=== PATIENT | male | born 1960 | race Hispanic/Latino ===

== ENCOUNTER 2020-08-06 13:12 | Emergency (ER) | payer MEDICAID ==
--- NOTE | 2020-08-06 16:46 | Event Note ---
ED Screening Note Date of service: 08/06/20 Time: 16:37 ED Screening Note: 59-year-old male patient presents emergency department with complaints of an acute exacerbation of chronic neck pain. States he has been suffering from back problems for over 20 years. 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 He has been taking multiple pain medications for an extended period of time, including opiates and muscle relaxers. States his primary care provider sent him to the ER to have his acute back pain exacerbation treated because it was causing his blood pressure to be elevated. The patients back pain is not associated with numbness, tingling, or loss of strength. There is no acute urinary incontinence or retention and no bowel incontinence or retention. There is no saddle anesthesia. The patient is afebrile and neurovascularly intact. No clinical evidence for acute nerve compression (such as cauda equine syndrome) or infection (such as epidural ab scess). General: Awake, appropriately interactive, no acute distress. Neck: Supple. Full range of motion intact. Cardiovascular: Normal peripheral perfusion. Pulmonary: No respiratory distress. Patient is speaking normally without use of accessory muscles. Skin: No apparent rashes or lesions. Back: Diffuse cervical spine tenderness without step-offs. Neurological: No facial asymmetry. Speech is clear. Follows commands. Patient is alert and oriented. Strength and sensation intact throughout. Ambulatory without assistance. No saddle anesthesia. Upper and lower extremity deep tendon reflexes symmetric. Musculoskeletal: Moves all four extremities spontaneously with normal range of motion. Psych: Cooperative. Appropriate mood and affect. The patients presentation is consistent with an acute exacerbation of chronic back pain. He is afebrile, vital signs are stable. Neurological exam is nonfocal. There is no clinical evidence of emergent pathology to warrant further testing, continued ED treatment, admission, or surgical evaluation at this point. It has been explained to the patient that further diagnostic testing on an emergent basis is not indicated and the most appropriate course of action is outpatient follow-up. Medical screening exam performed; this is patient encounter does not represent a certified medical emergency. Patient was advised that his medical screening exam findings do not justify dispensing controlled substances in the emergency department for management of chronic pain. He was offered Toradol and muscle relaxers, as well as referral to pain management clinic and prescription for nonopioid medications. Patient refused these medications and requested a second opinion from an attending physician. Case discussed with Dr. Schumacher, who will assume care of patient at this time. Of note, patient states he is a resident of [place] and his chronic pain medications have been filled at local pharmacy. [place] controlled substance database reviewed; there is no evidence of any controlled substances being dispensed under this patient's name and date of in this state in the last 4 years.
--- NOTE | 2020-08-06 18:17 | Emergency Department Report ---
HPI - General Chief Complaint: Back Pain/Injury Time Seen by Provider: 08/06/20 15:09 - HPI HPI: This is a 59-year-old male presents to the emergency department, allegedly sent in by his PCP Dr. Robbie Monroe, for evaluation and treatment of neck pain. Patient says he has been dealing with this neck pain for almost 20 years and has a history of spinal fusion and he says spinal stenosis. He denies any recent fall, trauma, injury. Patient says that he is trying to get into a pain clinic but has been unsuccessful and more recently his pain meds have been prescribed and managed by his PCP. He says that it feels like there is a "hot investigator vice my neck." He denies any headache, vision change, slurred speech, numbness or paresthesias. He denies any problems with bowel or bladder, any change in his gait or ability to ambulate. Patient says that has been more than 2 years since he saw either a neurosurgeon or orthopedic spine physician. The [place] prescription monitoring shows that the patient filled a 1 month supply of clonazepam and oxycodone in June. ED Past Medical Hx - Past Medical History Previous Medical History?: No - Surgical History Past Surgical History?: Yes Additional Surgical History: spinal fusion - Medications Home Medications: Home Medications Medication Instructions Recorded Confirmed Last Taken Type Cyclobenzaprine [Flexeril] 10 mg PO TID PRN #12 tablet 08/06/20 Unknown Rx Ibuprofen [Motrin 800 MG tab] 800 mg PO Q8HR PRN #20 tablet 08/06/20 Unknown Rx ED Review of Systems ROS: Stated complaint: BACK PAIN Other details as noted in HPI Comment: All other systems reviewed and negative Constitutional: denies: chills, fever Eyes: denies: eye pain, vision change ENT: denies: ear pain, throat pain Respiratory: denies: cough, shortness of breath Cardiovascular: denies: chest pain, palpitations Gastrointestinal: denies: abdominal pain, vomiting Genitourinary: denies: dysuria, discharge Musculoskeletal: other (neck pain). denies: back pain Skin: denies: rash, lesions Neurological: denies: headache, weakness, numbness, paresthesias Physical Exam - Physical Exam Physical Exam: GENERAL: The patient is well-developed well-nourished. HENT: Normocephalic. Atraumatic. Patient has moist mucous membranes. EYES: Extraocular motions are intact. NECK: Supple. Trachea is midline. There is both midline and bilateral paraspinal tenderness to palpation. There is taut musculature along the paraspinal muscles and down to the trapezius. Full range of motion of the head and neck. No meningismus signs. CHEST/LUNGS: Clear to auscultation. There is no respiratory distress noted. HEART/CARDIOVASCULAR: Regular. There is no tachycardia. There is no murmur. ABDOMEN: Abdomen is soft, nontender. Patient has normal bowel sounds. SKIN: Skin is warm and dry. NEURO: The patient is awake, alert, and oriented. The patient is cooperative. The patient has no focal neurologic deficits. Normal speech. Cranial nerves II through XII grossly intact. MUSCULOSKELETAL: There is no tenderness or deformity. There is no limitation ra nge of motion. ED Medical Decision Making - Medical Decision Making This patient presents to the emergency department seeking pain medication for chronic neck pain. The patient denies any recent fall, injury or trauma. On examination he has reproducible tenderness to palpation both midline and bilateral paraspinal neck along with taut musculature down through the trapezius muscles. He has full range of motion of his head and neck. No meningismus signs. No focal, motor or sensory deficits and his cranial nerves are intact. The patient is seen standing, and ambulatory in the emergency department, and appears very stable. He has no complaints of any numbness or paresthesias, weakness, extremity pain. Since the patient did not have any new fall, injury or trauma, I did not feel that any x-ray or CT imaging of the cervical spine/neck were necessary at this time. I explained to the patient that we are not a pain clinic and we do not refill chronic pain medications, especially scheduled or narcotic medications. I also explained that, given his history of a spinal fusion and spinal stenosis, that it is imperative that the patient follows up with either a neurosurgeon or orthopedic spine physician. The patient was given a single IM injection of morphine to try and treat his pain. The patient will be discharged home with a prescription for NSAIDs and a muscle relaxer. The patient will be given an outpatient referral for Dr. Eason, a local neurosurgeon. He was also instructed to follow-up with his primary care physician. He will return to the emergency department with any worsening of his symptoms or with any acute distress. Critical Care Time: No Critical care attestation.: If time is entered above; I have spent that time in minutes in the direct care of this critically ill patient, excluding procedure time. ED Disposition Clinical Impression: Neck pain, History of spinal fusion, Encounter for pain management Disposition: DC TO HOME OR SELFCARE Is pt being admited?: No Condition: Stable Instructions: Neck Exercises, Musculoskeletal Pain Additional Instructions: Please follow-up with your primary care physician in the next few days. I am giving you a referral for a local neurosurgeon, Dr. Eason, to follow-up regarding your neck pain and history of spinal fusion and spinal stenosis. You have been prescribed a medication that is sedating and therefore should not be taken prior to driving, working, and responsible for children and in no way should be mixed with alcohol of any quantity. Return to the emergency department with any worsening of your symptoms, new or concerning symptoms not addressed during this current emergency department visit, or with any acute distress. Prescriptions: Cyclobenzaprine [Flexeril] 10 mg PO TID PRN #12 tablet PRN Reason: Muscle Spasm Ibuprofen [Motrin 800 MG tab] 800 mg PO Q8HR PRN #20 tablet PRN Reason: Pain , Severe (7-10) Referrals: ROBBIE MONROE JR, MD [Staff Physician] - 2-3 Days RYANNE EASON II, MD [Staff Physician] - 2-3 Days Time of Disposition: 18:44
[2020-08-06 18:23] VITALS: BP 146/92
[2020-08-06] MEDS ORDERED: MORPHINE 4 MG/1 ML INJ IV ONE (18:26)
[2020-08-06] MEDS ORDERED: MORPHINE 4 MG/1 ML INJ IM ONE (18:27)
== END 2020-08-06 19:09 | disposition home or self-care (01) ==
LOC: ED 13:12 → EDBD 13:12 → ED 19:09
DX: M54.2 Cervicalgia (principal); Z79.899 Other long term (current) drug therapy; Z98.890 Other specified postprocedural states; Z98.1 Arthrodesis status
CPT/HCPCS: 36415; 80048; 80307; 81001; 85025; 96372; 99282; 99284; J2270; 80320; G0480; J1885

== ENCOUNTER 2020-08-06 19:58 | Emergency (ER) | payer MEDICAID ==
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
[2020-08-06 23:06] LABS: Bilirubin,Urine NEG (Negative); Blood,Urine NEG (Negative); Color,Urine Yellow (Yellow); Hyaline Casts,Urine 1 /LPF; Mucus,Urine 3+ /HPF; Protein,Urine <15 mg/dL mg/dL (Negative)
[2020-08-06 23:07] LABS: Amphetamine Screen,Urine PRESUMPTIVE NEGATIVE; Benzodiazepines Screen,Urine PRESUMPTIVE NEGATIVE; Cannabinoid Screen,Urine PRESUMPTIVE POSITIVE; Cocaine Screen,Urine PRESUMPTIVE NEGATIVE; Methadone Screen,Urine PRESUMPTIVE NEGATIVE; Opiate Screen,Urine PRESUMPTIVE POSITIVE
[2020-08-07] MEDS ORDERED: KETOROLAC 60 MG/2 ML INJ IM ONE (00:06)
[2020-08-07 00:08] LABS: Basophils # (Auto) 0.1 K/mm3 (0.0-0.1); Basophils % (Auto) 0.8 % (0.0-1.8); Eosinophils # (Auto) 0.1 K/mm3 (0.0-0.4); Eosinophils % (Auto) 1.4 % (0.0-4.3); Hematocrit 46.2 % (35.5-45.6); Hemoglobin 15.9 gm/dl (11.8-15.2); Lymphocytes # (Auto) 3.1 K/mm3 (1.2-5.4); Lymphocytes % (Auto) 38.8 % (13.4-35.0); Mean Corpuscular HGB Conc 34 % (32-34); Mean Corpuscular Volume 96 fl (84-94); Monocytes # (Auto) 0.8 K/mm3 (0.0-0.8); Monocytes % (Auto) 10.3 % (0.0-7.3); Platelet Count 230 K/mm3 (140-440); Red Cell Distribution Width 14.3 % (13.2-15.2)
[2020-08-07 00:25] LABS: BUN/Creatinine Ratio 14; Blood Urea Nitrogen 11 mg/dL (9-20); Calcium 9.1 mg/dL (8.4-10.2); Hemolysis Index 11
[2020-08-07] MEDS ORDERED: ACETAMINOPHEN 325 MG TAB PO PRN (09:26)
[2020-08-07] MEDS ORDERED: ALUM-MAG HYDROXIDE-SIMETHICONE 200-200-20MG/5ML ORAL LIQD 30 ML PO PRN (09:26)
[2020-08-07] MEDS ORDERED: MAGNESIUM HYDROXIDE (MOM) ORAL LIQD UDC PO PRN (09:26)
[2020-08-07] MEDS ORDERED: CYCLOBENZAPRINE 10 MG TAB PO PRN (09:28)
[2020-08-07 09:42] VITALS: BP 124/92
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
[2020-08-07] MEDS ORDERED: clonazePAM 0.5 MG TAB PO NR (10:30)
[2020-08-07] MEDS ORDERED: clonazePAM 0.5 MG TAB PO ONE (11:46)
[2020-08-07] MEDS ORDERED: traMADol 50 MG TAB PO ONE (16:18)
== END 2020-08-07 17:30 | disposition home or self-care (01) ==
LOC: ED 19:58
DX: M54.2 Cervicalgia (principal); R45.851 Suicidal ideations; Z79.899 Other long term (current) drug therapy
CPT/HCPCS: 36415; 80048; 80307; 81001; 85025; 96372; 99284; J1885; J2270; 80320; G0480